=== PATIENT | male | born 1985 | race American Indian/Alaskan Native ===

== ENCOUNTER 2025-05-31 19:48 | Emergency (ER) | payer OTHER, SELFPAY ==
--- NOTE | 2025-05-31 19:49 | XR_ITS ---
Examination: Hand, right 3 views Technique: Hand AP, oblique, lateral 3 views Date and time of exam: May 31, 2025, 1952 hrs. Indications: History to the hand one hour ago with third digit pain. Findings: No acute fracture. No dislocation. No foreign body Impression: No acute fracture. No opaque foreign body
--- NOTE | 2025-05-31 19:49 | XR_ITS ---
Examination: Right elbow 3 views Technique: Elbow AP, oblique, lateral 3 views Exam date and time: May 31, 2025, 1952 hrs. Indications: Injury to the elbow 1 hours ago, elbow pain. Findings: No fracture or dislocation. No foreign body Impression: No fracture or dislocation.
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
[2025-05-31] MEDS: DIPHTH,PERTUSS(ACELL),TET VAC 0.5 ML SYR- ADULT IMi (20:03)
== END 2025-05-31 20:20 | disposition home or self-care (01) ==
LOC: SERX 20:35
PROVIDERS: Emergency Provider Emergency Medicine
DX: S51.031A Puncture wound without foreign body of right elbow, initial encounter (principal); W25.XXXA Contact with sharp glass, initial encounter; S61.209A Unspecified open wound of unspecified finger without damage to nail, initial encounter; Z23 Encounter for immunization
CPT/HCPCS: 12001; 73080; 73130; 90471; 90715; 99283